=== PATIENT | female | born 1950 | race Caucasian/White ===

== ENCOUNTER → 2024-08-17 | Outpatient (CLI) | payer OTHER, SELFPAY ==
[2024-08-17 10:13] LABS: Basophils # (Auto) 0.1 Thou/mm3 (0.0-0.2); Basophils % (Auto) 1 % (0-2.5); Eosinophils # (Auto) 0.3 Thou/mm3 (0.0-0.5); Eosinophils % (Auto) 3 % (0-10); Hemoglobin 13.1 g/dL (12.0-16.0); Immature Granulocytes % (Auto) 0 % (0-0); Immature Granulocytes Auto 0.03 Thou/mm3 (0.00-0.00); Lymphocytes # (Auto) 1.3 Thou/mm3 (1.0-4.8); Lymphocytes % (Auto) 17 % (10-50); Mean Corpuscular HGB Conc 32.8 g/dl (31.0-37.0); Mean Corpuscular Hemoglobin 28.3 pg (25.0-35.0); Mean Corpuscular Volume 86 fL (80-100); Monocytes # (Auto) 0.4 Thou/mm3 (0.0-0.8); Monocytes % (Auto) 6 % (0-12); Neutrophils # (Auto) 5.6 Thou/mm3 (1.8-7.7); Neutrophils % (Auto) 73 % (37-80); Nucleated Red Blood Cell % 0 /100 WBC (0); Platelet Count 281 Thou/mm3 (140-440); RDW Standard Deviation 45.7 fL (36.4-46.3); Red Blood Count 4.63 Miln/mm3 (4.00-5.20); White Blood Count 7.6 Thou/mm3 (3.6-11.0)
[2024-08-17 10:22] LABS: Alanine Aminotransferase 11 U/L (10-49); Albumin, Serum 4.1 gm/dL (3.4-4.8); Albumin/Globulin Ratio 1.5 (1.2-2.2); Alkaline Phosphatase 46 U/L (46-116); Anion Gap 4 (7-16); Aspartate Amino Transferase 11 U/L (0-34); BUN/Creatinine Ratio 23 Ratio (12-20); Bilirubin,Total 0.5 mg/dL (0.3-1.2); Blood Urea Nitrogen 43 mg/dL (9-23); Calcium 9.2 mg/dL (8.3-10.6); Calcium (Corrected) 9.2 mg/dL (8.5-10.1); Carbon Dioxide 25.6 mMol/L (20.0-31.0); Cardiac Risk Estimate 3.6 RATIO (3.7-5.6); Chloride 108 mMol/L (98-107); Cholesterol 132 mg/dL (132-200); Creatinine (Component) 1.9 mg/dL (0.6-1.3); Globulin 2.7 gm/dL (2.3-3.5); Glucose 152 mg/dL (74-106); Glucose Estimated Average 177 mg/dL (80-131); HDL Cholesterol 37 mg/dL (40-60); Hemoglobin A1C 7.8 % Hgb (4.8-6.0); LDL Cholesterol,Calculated 69 mg/dL (0-130); Osmolality,Calculated 289 (275-295); Potassium 4.8 mMol/L (3.4-5.1); Sodium 138 mMol/L (136-145); Total Protein 6.8 gm/dL (5.7-8.2); Triglycerides 128 mg/dL (30-150); eGFR 28 See Note
[2024-08-17 10:24] LABS: Vitamin B12 763 pg/mL (211-911); Vitamin D 25 Hydroxy Total 51.1 ng/mL (7.3-40.2)
[2024-08-17 11:12] LABS: Creatinine MALB Rnd Ur 65 mg/dL (30-125); Microalbumin Creat Ratio 162 mg/gCrea (<30); Microalbumin, Random Urine 105 mg/L (0-300)
== END | disposition home or self-care (01) ==
LOC: CDIM 09:02 → COPL 09:10
PROVIDERS: PCP Nurse Practitioner Family; Referring Provider Nurse Practitioner Family; Visit Provider Nurse Practitioner Family
DX: E11.65 Type 2 diabetes mellitus with hyperglycemia (principal); E53.8 Deficiency of other specified B group vitamins; E55.9 Vitamin D deficiency, unspecified
CPT/HCPCS: 36415; 80053; 80061; 82043; 82306; 82570; 82607; 83036; 85025

== ENCOUNTER 2024-08-27 22:48 | Inpatient (IN) | payer OTHER, MEDICARE, SELFPAY ==
[2024-08-27 22:50] VITALS: PULSE 104; RESP 18; O2SAT 99
[2024-08-27 22:55] VITALS: BP 131/76; PULSE 90; RESP 19; TEMP 36.9; O2SAT 97; BMI 38.9
--- NOTE | 2024-08-27 23:08 | XR_ITS ---
Examination: CT abdomen and pelvis without contrast. Coronal 3-D reconstructions. Sagittal 2-D reconstructions. Date and time of exam:August 27, 2024 11:28 PM Indications: Onset left flank pain today history kidney stones CTDI: vol (mGy): 14.6 DLP: (mGycm): 880 Technique: Axial images of the abdomen have been obtained, 3 mm slice thickness Intravenous contrast material has not been administered. Low dose protocols were performed. One or more of the following dose reduction techniques were used; automated exposure control, adjustment of the mA and/or KV according to patient size, use of iterative reconstruction technique. Findings: No focal liver or splenic lesions No gallstones No splenic or pancreatic mass 3 cm upper pole right renal cyst Parapelvic and lower pole left renal cysts, the largest 35 mm Mild left hydronephrosis, no ureteral calculi No bowel obstruction Normal appendix No diverticulitis Moderate osteopenia Anteverted uterus Markedly thickened urinary bladder wall with inflammatory change Impression: Mild left hydronephrosis, markedly thickened urinary bladder wall with inflammatory change The appearance is most consistent with left pyelonephritis and cystitis No renal or ureteral calculi
--- NOTE | 2024-08-27 23:12 | PD.EDRME ---
Rapid Medical Screening Exam RME Arrival date/time: 08/27/24 22:48 Chief Complaint: Back Pain/Injury Time Seen by Provider: 08/27/24 22:57 Vital signs: Vital Signs Temperature 98.4 F 08/27/24 22:55 Pulse Rate 90 08/27/24 22:55 Respiratory Rate 19 08/27/24 22:55 Blood Pressure 131/76 H 08/27/24 22:55 Pulse Oximetry (%) 97 08/27/24 22:55 Oxygen Delivery Method Room Air 08/27/24 22:55 Vital signs reviewed by provider: Yes RME Narrative: 74-year-old female presents for evaluation of left-sided flank pain. She reports a history of obstructive kidney stones x 12 years ago requiring lithotripsy. She endorses dysuria x 1 week. Denies chest pain, fever, shortness of breath, abdominal pain, diarrhea.
[2024-08-27] MEDS: MORPHINE SULF INJ 10 MG/ML VIAL 4 MG IVP (23:37)
[2024-08-27] MEDS: ONDANSETRON INJ 2 MG/ML INJ 2 ML 4 MG IV (23:49)
[2024-08-27 23:59] LABS: Basophils # (Auto) 0.1 Thou/mm3 (0.0-0.2); Basophils % (Auto) 0 % (0-2.5); Eosinophils # (Auto) 0.1 Thou/mm3 (0.0-0.5); Eosinophils % (Auto) 1 % (0-10); Hematocrit 39.8 % (36.0-46.0); Hemoglobin 13.5 g/dL (12.0-16.0); Immature Granulocytes % (Auto) 0 % (0-0); Immature Granulocytes Auto 0.04 Thou/mm3 (0.00-0.00); Lymphocytes # (Auto) 0.7 Thou/mm3 (1.0-4.8); Lymphocytes % (Auto) 6 % (10-50); Mean Corpuscular HGB Conc 33.9 g/dl (31.0-37.0); Mean Corpuscular Hemoglobin 28.7 pg (25.0-35.0); Mean Corpuscular Volume 85 fL (80-100); Monocytes # (Auto) 0.7 Thou/mm3 (0.0-0.8); Monocytes % (Auto) 6 % (0-12); Neutrophils # (Auto) 10.6 Thou/mm3 (1.8-7.7); Neutrophils % (Auto) 88 % (37-80); Nucleated Red Blood Cell % 0 /100 WBC (0); Platelet Count 192 Thou/mm3 (140-440); RDW Standard Deviation 44.6 fL (36.4-46.3); White Blood Count 12.2 Thou/mm3 (3.6-11.0)
[2024-08-28] VITALS (13 sets, daily range): BP systolic 90–140; BP diastolic 60–86; PULSE 82–109; RESP 16–19; TEMP 36.2–38.3; O2SAT 94–99; BMI 38.9
[2024-08-28 00:46] LABS: Alanine Aminotransferase 12 U/L (10-49); Albumin, Serum 4.4 gm/dL (3.4-4.8); Albumin/Globulin Ratio 1.4 (1.2-2.2); Alkaline Phosphatase 47 U/L (46-116); Anion Gap 8 (7-16); Aspartate Amino Transferase 16 U/L (0-34); BUN/Creatinine Ratio 18 Ratio (12-20); Bilirubin,Total 0.7 mg/dL (0.3-1.2); Blood Urea Nitrogen 36 mg/dL (9-23); Calcium 9.5 mg/dL (8.3-10.6); Calcium (Corrected) 9.5 mg/dL (8.5-10.1); Carbon Dioxide 23.8 mMol/L (20.0-31.0); Chloride 102 mMol/L (98-107); Estimated Creatinine Clearance 28.2 mL/min (>60); Globulin 3.1 gm/dL (2.3-3.5); Glucose 241 mg/dL (74-106); Osmolality,Calculated 284 (275-295); Potassium 4.4 mMol/L (3.4-5.1); Sodium 134 mMol/L (136-145); Total Protein 7.5 gm/dL (5.7-8.2); eGFR 26 See Note
[2024-08-28 01:24] LABS: Collection Type, Urine Clean Catch; Squamous Epithelial Cell,Urine 0 /hpf (0-5)
[2024-08-28 01:28] LABS: Bacteria,Urine 2+; Bilirubin,Urine Negative (Negative); Blood,Urine 3+ (Negative); Budding Yeast,Urine Present; Clarity,Urine Turbid (Clear/Hazy); Color,Urine Yellow (Lt Yel-Yel); Glucose, Urine 4+ (Negative); Ketones,Urine Negative (Negative); Leukocyte Esterase,Urine Positive (Negative); Nitrite,Urine Negative (Negative); Protein,Urine 2+ (Neg - Trace); RBC,Urine 92 /hpf (0-3); Specific Gravity,Urine 1.019 (1.001-1.035); Urobilinogen,Urine Negative mg/dL (0.0-1.0); WBC,Urine 5507 /hpf (0-5)
[2024-08-28] MEDS: cefTRIAXone 1,000 MG in SODIUM CHLORIDE 0.9% (P) 50 ML 100 MG IV (01:35)
--- NOTE | 2024-08-28 01:52 | EDNOTE_ITS ---
ED Back Injury Pain RME/HPI General Chief Complaint: Back Pain/Injury Stated Complaint: back pain Time Seen by Provider: 08/27/24 22:57 Source: patient Arrival date/time: 08/27/24 22:48 74-year-old female with past medical history of kidney stones, diabetes on Jardiance, and hypertension presents emergency department complaining of left- sided flank pain and dysuria for 1 week. Patient denies any chills, fever, nausea vomiting, gross hematuria, diarrhea, or any other associated symptoms. Mode of arrival: ambulatory Limitations: no limitations RME / HPI RME / HPI Narrative: 74-year-old female presents for evaluation of left-sided flank pain. She reports a history of obstructive kidney stones x 12 years ago requiring lithotripsy. She endorses dysuria x 1 week. Denies chest pain, fever, shortness of breath, abdominal pain, diarrhea. Related Data Home Medications ?Medication ?Instructions ?Recorded ?Confirmed lisinopril 20 mg tablet 20 mg PO QDAY #0 tabs 09/02/15 metformin 1,000 mg tablet 1,000 mg PO BID #0 tabs 09/02/15 (Glucophage) pravastatin 40 mg tablet 40 mg PO HS #0 tabs 09/02/15 (Pravachol) sitagliptin phosphate 100 mg 100 mg PO QDAY #0 tabs 09/02/15 tablet (Januvia) Vitamin * 1 tab PO QDAY #0 tabs 09/18/15 Allergies Allergy/AdvReac Type Severity Reaction Status Date / Time codeine AdvReac Intermediate STOMACH Verified 09/19/15 15:43 UPSET hydrocodone AdvReac Mild STOMACH Verified 09/19/15 15:43 UPSET Review of Systems Review of Systems Systems Reviewed: All systems reviewed, normal except as documented Constitutional Constitutional: Reports system reviewed and no additional complaints, except as documented, Denies body ache(s), Denies chills and Denies fever(s) Eyes Eyes: Reports system reviewed and no additional complaints, except as documented and Denies change in vision ENT Ears, Nose, Mouth, and Throat: Reports system reviewed and no additional complaints, except as documented, Denies disequilibrium, Denies dizziness, Denies sore throat and Denies vertigo Cardiovascular Cardiovascular: Reports system reviewed and no additional complaints, except as documented, Denies chest pain and Denies dyspnea Respiratory Respiratory: Reports system reviewed and no additional complaints, except as documented, Denies chest congestion, Denies cough and Denies dyspnea Gastrointestinal Gastrointestinal: Reports system reviewed and no additional complaints, except as documented, Denies abdominal pain, Denies nausea and Denies vomiting Genitourinary Genitourinary: Reports dysuria and Reports urinary urgency Musculoskeletal Musculoskeletal: Reports system reviewed and no additional complaints, except as documented, Denies abnormal gait, Denies arthralgias and Reports back pain Integumentary/Breasts Skin/Breast: Reports system reviewed and no additional complaints, except as documented, Denies erythema, Denies rash and Denies wounds Neurologic Neurologic: Reports system reviewed and no additional complaints, except as documented, Denies abnormal gait, Denies disequilibrium, Denies dizziness and Denies vertigo Past Medical History Social History SMOKING STATUS: Never smoker ED Exam General Limitations: Present no limitations General appearance: Present alert and in no apparent distress Head Head exam: Present atraumatic Eye Eye exam: Present normal appearance, PERRL and EOMI ENT ENT exam: Present normal exam, normal oropharynx and mucous membranes moist Neck Neck exam: Present normal inspection, full ROM and trachea midline Chest Chest inspection: Present normal inspection and symmetric chest wall rise Respiratory Respiratory exam: Present normal lung sounds bilaterally Cardiovascular Cardiovascular exam: Present regular rate, normal rhythm and normal heart sounds Abdominal Exam Abdominal exam: Present soft and normal bowel sounds Extremities Exam Extremities exam: Present normal inspection and full ROM Back Exam Back exam: Present normal inspection, full ROM and CVA tenderness (L) Neurological Exam Neurological exam: Present alert, oriented X3 and CN II-XII intact Psychiatric Psychiatric exam: Present normal affect and normal mood Skin Skin exam: Present warm, dry, intact and normal color Course Quality Measures none Orders Category Date Time Status COVID-19 Screening Questionnaire NOW Care 08/28/24 01:49 Active Decision to Admit X1 Care 08/28/24 01:[address] abdomen pelvis wo con Stat Exams 08/27/24 23:08 Completed CBC Stat Lab 08/27/24 23:54 Completed CMP [Comprehensive Metabolic Panel] Stat Lab 08/27/24 23:54 Completed UA [Urinalysis] Stat Lab 08/27/24 01:55 Completed Urine Culture Stat Lab 08/28/24 00:51 Ordered Morphine Inj Med 08/27/24 23:10 Discontinued 4 mg IVP X1 ONE Ondansetron Inj [Zofran Inj] Med 08/27/24 23:10 Discontinued 4 mg IV X1 ONE cefTRIAXone [Rocephin] 1,000 mg Med 08/28/24 01:05 Discontinued Sodium Chloride 0.9% (P) [Ns 0.9% (P)] 50 ml IV X1 Vital Signs Vital signs: Vital Signs Temperature 98.4 F 08/27/24 22:55 Pulse Rate 90 08/27/24 22:55 Respiratory Rate 19 08/27/24 22:55 Blood Pressure 131/76 H 08/27/24 22:55 Pulse Oximetry (%) 97 08/27/24 22:55 Oxygen Delivery Method Room Air 08/27/24 22:55 97% room air within normal limits. Back Pain / Injury MDM Narrative MDM Narrative:: 74-year-old female with past medical history of kidney stones, diabetes on Jardiance, and hypertension presents emergency department complaining of left- sided flank pain and dysuria for 1 week. Patient denies any chills, fever, nausea vomiting, gross hematuria, diarrhea, or any other associated symptoms. Patient CBC mild leukocytosis 12.2. CMP remarkable for elevated creatinine 2.0 that was normal back in April. Urinalysis significant for RBCs, WBCs, and bacteria. CT impression: Impression: Mild left hydronephrosis, markedly thickened urinary bladder wall with inflammatory change The appearance is most consistent with left pyelonephritis and cystitis No renal or ureteral calculi Dr Ibarra call and discussed case and agrees to admit for IV antibiotics and IV fluid for acute kidney injury and pyelonephritis. Patient is stable condition at time of admission. Patient data External records reviewed:: [facility] previous records Clinical information provided by:: patient and family Social determinants that could affect healthcare access:: none Patient has the following chronic illnesses:: See chart How is presenting disease/condition affected by chronic disease/condition?: exacerbated by Evaluation data The following diagnostics were reviewed and interpreted by me:: lab results and radiology exam(s) Lab and/or radiology exams considered but not ordered:: Ordered Interpretation Summary: Interpreted by me Medications / Prescriptions Medications or Prescriptions considered but not ordered:: Ordered Medication administrations:: Medication Administration History Discontinued Medications Ceftriaxone Sodium 1,000 mg/ (Sodium Chloride) 50 mls @ 100 mls/hr IV X1 ONE Stop: 08/28/24 01:34 Last Admin: 08/28/24 01:35 Dose: 100 mls/hr Documented By: CVL Morphine Sulfate (Morphine Sulf Inj 10 Mg/Ml Vial) 4 mg IVP X1 ONE Stop: 08/27/24 23:11 Last Admin: 08/27/24 23:37 Dose: 4 mg Documented By: MP Ondansetron HCl (Ondansetron Inj 2 Mg/Ml Inj 2 Ml) 4 mg IV X1 ONE; Protocol Stop: 08/27/24 23:11 Last Admin: 08/27/24 23:49 Dose: 4 mg Documented By: DB Given Consultations Consultation(s) initiated? (list below): Yes Consultation #1 (Physician, Specialty, Details): Dr. Ibarra Diagnosis Differential diagnosis back pain/injury: renal colic, pyelonephritis, thoracic back pain and AAA Most likely diagnosis given after review of the tests above:: Pyelonephritis Acute kidney injury Admission Indicated Admission indicated?: indicated Admission Request Was there a request for admission?: Yes Admission Attestation Admission request attestation: Discussed case with [Dr. Ibarra] regarding admission. Discussed patients ED course, exam findings, labs, and radiology results. Dr Ibarra [agrees] to accept the patient for admission. Disposition Plan Disposition Plan: Admit Discharge Plan Plan Patient Disposition: Admit Acute Care w/in Hospital Disposition Comment: Stable Prescriptions/Referrals Prescriptions/Med Rec: No Action lisinopril 20 MG tablet 20 mg PO QDAY Qty: 0 metformin [Glucophage] 1,000 MG tablet 1,000 mg PO BID Qty: 0 pravastatin [Pravachol] 40 MG tablet 40 mg PO HS Qty: 0 sitagliptin phosphate [Januvia] 100 MG tablet 100 mg PO QDAY Qty: 0 Vitamin * 1 EACH tablet 1 tab PO QDAY Qty: 0 Referrals: Ry Ibarra MD [Primary Care Provider] - In 1 week Problem List Clinical Impression: Acute kidney injury, Acute pyelonephritis Patient/Caregiver Discharge Instructions Print Language: Arabic Stand Alone Forms: Velvet Award Info., Patient Portal Info Letter PA/TELEPHONE CLAIMS REPRESENTATIVE Supervising Physician PA/TELEPHONE CLAIMS REPRESENTATIVE Supervising Physician: Dr. Parker
[2024-08-28] MEDS: SODIUM CHLORIDE 0.9% 1000 ML 1,000 ML 80 ML IV ×2 (03:18→21:00)
--- NOTE | 2024-08-28 07:43 | PC.NURSE ---
pt resting in bed in no apparent distress. pt states that she is not having any burning pain with urination any longer but reports slight headache. offered pt pain medications. pt refused morphine at this time. temp checked 100.6. no orders for Tylenol noted. will contact Dr. Iabrra for further orders
[2024-08-28] MEDS: ACETAMINOPHEN 500 MG TABLET PO (08:48)
[2024-08-28] MEDS: INSULIN HUM REGULAR 1 UNIT/0.01 ML (PER UNIT) SC ×4 (08:48→21:04)
[2024-08-28 11:54] LABS: Lactate (Lactic Acid) 1.3 mMol/L (0.4-2.0)
[2024-08-28] MEDS: IBUPROFEN TAB 600 MG TABLET PO (11:55)
[2024-08-28] MEDS: SODIUM CHLORIDE 0.9% 1000 ML 1,000 ML 999 ML IV (11:55)
--- NOTE | 2024-08-28 12:32 | ESHP_ITS ---
Documentation for date of: 08/28/24 [facility] History of Present Illness Chief complaint: Flank pain and dysuria History of present illness: 74 y/o F with PMHx significant for HTN, DM, osteoarthritis, gout presents with chief complaint of dysuria x 3 weeks and left flank pain x 1 day. Patient was in her usual state of health until approximately 3 weeks ago when she began developing burning pain on urination. Patient was taking Jardiance at the time, was discontinued by Dr. Yoon. Patient continued to have dysuria, yesterday she developed sharp left flank pain that she initially attributed to a kidney stone prompting ER visit. Patient had 1 episode of vomiting shortly after receiving morphine in the ED. Patient denies fevers, chills, chest pain, shortness of breath, bloody urine. ED COURSE: Labs significant for: Sodium 134, potassium 4.4, bicarb 23.8, BUN 36, creatinine 2.0, eGFR 26, WBC 12.2, hemoglobin 13.5. Urinalysis showed 3+ blood, 1+ protein, 3000 WBCs, 106 RBCs, 3+ bacteria, yeast positive. Imaging significant for: CT A/P showing left hydronephrosis and pyelonephritic pattern. Patient received 1 g Rocephin in the ED. Patient meets 2/4 SIRS criteria: Fever 101.0, leukocytosis 12.2. PMH: HTN, DM, osteoarthritis, gout PSH: Surgery, hernia surgery, Allergies:?Codeine?nausea/vomiting, lethargy Medications: Allopurinol, atorvastatin, other unknown meds Review of Systems Review of Systems Systems Reviewed: All systems reviewed, normal except as documented Past Medical History Past Medical History NEUROLOGIC: Negative Neurological Disorders CARDIAC: Positive Cardiac Disorders and Hypertension; Negative Myocardial Infarction, Cardiac Arrhythmia, Atrial Fibrillation, Angina, Heart Murmur, Coronary Artery Disease, Atherosclerotic Heart Disease, Peripheral Vascular Disease, Hypercholesterolemia, Aneurysm, Congestive Heart Failure, Valvular Heart Disease, Rheumatic Fever, Cardiomyopathy, Edema, Pericarditis, Cellulitis, Deep Vein Thrombosis, Hypotension or Varicose Veins RESPIRATORY: Negative Respiratory Disorders or Chronic Obstructive Pulmonary Disease (COPD) GASTROINTESTINAL: Negative Gastrointestinal Disorders or Colorectal Cancer GENITOURINARY: Positive Genitourinary Disorders and Kidney Stones; Negative Chronic Kidney Disease, Renal Disease, Polycystic Kidney Disease, Neurogenic Bladder, Inguinal Hernia, Dialysis, Prostate Cancer or Benign Prostatic Hyperplasia REPRODUCTIVE: Negative Breast Cancer, Pelvic Inflammatory Disease or Testicular Cancer MUSCULOSKELETAL: Positive Musculoskeletal Disorders and Rheumatoid Arthritis; Negative Muscular Dystrophy, Myasthenia Gravis, Marfan's Syndrome, Bone Cancer, Arthritis, Osteoporosis, Degenerative Disk Disease, Gout, Scoliosis, Fibromyalgia, Fractures, Degenerative Joint Disease, Osteomyelitis or Poliovirus ENT: Negative History of ENT Problems ENDOCRINE: Positive Endocrine Disorders and Diabetes Mellitus Type 2; Negative Diabetes Mellitus Type 1, Hypoglycemia, Jasmin's Syndrome, [place]'s Disease, Hyperthyroidism, Hypothyroidism, Parathyroid Disease, Pituitary Disease, Systemic Lupus Erythematosus, Syndrome of Inappropriate Antidiuretic Hormone (SIADH), Adrenal Disease or Graves' Disease HEMATOLOGIC: Negative Blood Disorders OTHER HISTORY: Negative Hospitalization, Autoimmune Disease, Down Syndrome, Developmental Delay, Shingles, Falls, Blood Transfusions, Blood Transfusion Reaction, Anesthesia Reactions, Organ Transplant, Chemotherapy, Radiation Therapy, Hyperbaric Therapy, MRSA, VRSA, Vancomycin-Resistant Enterococci, Cancer, Breast Cancer, Cervical Cancer, Colorectal Cancer, Lung Cancer, Ovarian Cancer, Prostate Cancer or Testicular Cancer Family History FAMILY HISTORY: Negative Family Psychiatric Problems, Family Respiratory Disorders, Family Cardiac Disorders, Family Gastrointestinal Problems, Family Genitourinary Problems, Family Endocrine Disorders, Family Reproductive Disorders, Family Musculoskeletal Disorders, Family Cancer, Family Surgery or Family Anesthesia Reaction Surgical History SURGICAL: Positive Knee Sx (right knee) and Section (x1); Negative Pacemaker, Neurologic Surgery, Brain Shunt or Organ Transplant Social History SMOKING STATUS: Never smoker SECOND HAND EXPOSURE: No Past Medical History Comments PMH COMMENT: PMH: HTN, DM, osteoarthritis, gout PSH: Surgery, hernia surgery, Allergies:?Codeine?nausea/vomiting, lethargy Medications: Allopurinol, atorvastatin, other unknown meds Exam Vital Signs Temp Pulse Resp BP Pulse Ox O2 Del Method 101.0 F H 100 19 134/85 H 96 Room Air 08/28/24 11:55 08/28/24 11:17 08/28/24 11:17 08/28/24 11:17 08/28/24 11:17 08/28/24 11:17 Narrative Exam PE: Gen: Well-developed and well-nourished. Obese. HEENT: NCAT, PERRLA, EOMI, MMM, anicteric conjunctivae. CVS: normal S1 and S2. RRR. No M/R/G. Resp: CTA B/L. No rhonchi, rales, crackles or wheezing. Abd: soft, non-tender, non-distended. MSK: Good ROM in BUE & BLE. No edema or rash. No CVA tenderness. Neuro: CN II-XII grossly intact. Strength 5/5 in BUE & BLE. Alert and oriented x3. Psych: appropriate mood and affect. Results: Labs 08/27/24 23:54 08/27/24 23:54 Labs: Short CBC 08/27/24 Range/Units 23:54 WBC 12.2 H (3.6-11.0) Thou/mm3 Hgb 13.5 (12.0-16.0) g/dL Hct 39.8 (36.0-46.0) % Plt Count 192 D (140-440) Thou/mm3 BMP 08/27/24 23:54 Sodium 134 L Potassium 4.4 Chloride 102 Carbon Dioxide 23.8 BUN 36 H Creatinine 2.0 H Glucose 241 H Calcium 9.5 Liver Function 08/27/24 Range/Units 23:54 Total Bilirubin 0.7 (0.3-1.2) mg/dL AST 16 (0-34) U/L ALT 12 (10-49) U/L Alkaline Phosphatase 47 (46-116) U/L Albumin 4.4 (3.4-4.8) gm/dL Urine 08/27/24 Range/Units 01:55 Urine Color Yellow (Lt Yel-Yel) Urine Clarity Turbid A (Clear/Hazy) Urine pH 6.0 (5.0-7.0) Ur Specific Conrad 1.019 (1.001-1.035) Urine Protein 2+ A (Neg - Trace) Urine Glucose (UA) 4+ A (Negative) Quality Measures Quality Measures VTE prophylaxis Advance care planning discussed with:: patient Medications Home Medications and Allergies Home Medications ?Medication ?Instructions ?Recorded ?Confirmed ?Type lisinopril 20 mg tablet 40 mg PO QDAY #0 tabs 09/02/15 08/28/24 History allopurinol 100 mg tablet 100 mg PO QDAY 08/28/24 08/28/24 History insulin degludec 200 unit/mL (3 40 unit subcut ONCE PM 08/28/24 08/28/24 History mL) subcutaneous pen (Tresiba FlexTouch U-200 insulin) tirzepatide 2.5 mg/0.5 mL 2.5 mg subcut QWEEK 08/28/24 08/28/24 History subcutaneous pen injector (Sharla) Allergies Allergy/AdvReac Type Severity Reaction Status Date / Time codeine AdvReac Intermediate STOMACH Verified 09/19/15 15:43 UPSET hydrocodone AdvReac Mild STOMACH Verified 09/19/15 15:43 UPSET Visit Medications Acetaminophen (Acetaminophen 500 Mg Tablet) 500 mg PO Q6HR PRN PRN Reason: Fever > 100.4 Stop: 09/27/24 08:31 Last Admin: 08/28/24 08:48 Dose: 500 mg Dextrose (Dextrose 50%-Water Inj 50 Ml Syringe) 25 ml IV Q15MIN PRN PRN Reason: BG 50-70 responsive npo pt Stop: 09/27/24 08:32 Dextrose (Dextrose 50%-Water Inj 50 Ml Syringe) 50 ml IV Q15MIN PRN PRN Reason: BG <50 OR BG <70 & pt unresponsive Stop: 09/27/24 08:32 Glucagon (Glucagon Inj 1 Mg Vial) 1 mg IM Q15MIN PRN PRN Reason: BG <70, and no IV access Sodium Chloride (Ns) 1,000 mls @ 80 mls/hr IV .[id number] ONE Stop: 08/28/24 14:29 Last Admin: 08/28/24 03:18 Dose: 80 mls/hr Ceftriaxone Sodium/Dextrose (Rocephin/D5w 1gm Iv Premix) 50 mls @ 100 mls/hr IV 2100 ILANA Stop: 09/04/24 20:59 Insulin Human Regular (Insulin Hum Regular 1 Unit/0.01 Ml (Per Unit)) 0 unit SC ACHS [facility]; Protocol Stop: 09/27/24 11:29 Last Admin: 08/28/24 11:57 Dose: 2 unit Morphine Sulfate (Morphine Sulf Inj 10 Mg/Ml Vial) 2 mg IVP Q4HR PRN PRN Reason: PAIN SCALE 4-10(Mod-Sev Ondansetron HCl (Ondansetron Inj 2 Mg/Ml Inj 2 Ml) 4 mg IV Q6HR PRN; Protocol PRN Reason: NAUSEA OR VOMITING Stop: 09/27/24 02:02 Discontinued Medications Ceftriaxone Sodium 1,000 mg/ (Sodium Chloride) 50 mls @ 100 mls/hr IV X1 ONE Stop: 08/28/24 01:34 Last Infusion: 08/28/24 02:08 Dose: Infused Sodium Chloride (Ns) 1,000 mls @ 999 mls/hr IV .Q1H1M ONE Stop: 08/28/24 12:31 Last Admin: 08/28/24 11:55 Dose: 999 mls/hr Ibuprofen (Ibuprofen Tab 600 Mg Tablet) 600 mg PO X1 ONE Stop: 08/28/24 11:32 Last Admin: 08/28/24 11:55 Dose: 600 mg Insulin Human Regular (Insulin Hum Regular 1 Unit/0.01 Ml (Per Unit)) 0 unit SC ACHS ILANA; Protocol Stop: 09/27/24 11:29 Morphine Sulfate (Morphine Sulf Inj 10 Mg/Ml Vial) 4 mg IVP X1 ONE Stop: 08/27/24 23:11 Last Admin: 08/27/24 23:37 Dose: 4 mg Ondansetron HCl (Ondansetron Inj 2 Mg/Ml Inj 2 Ml) 4 mg IV X1 ONE; Protocol Stop: 08/27/24 23:11 Last Admin: 08/27/24 23:49 Dose: 4 mg Assessment & Plan Plan 74 y/o F with PMHx significant for HTN, DM, osteoarthritis, gout presents with chief complaint of dysuria x 3 weeks and left flank pain x 1 day, admitted for pyelonephritis. #Sepsis secondary to #UTI #Pyelonephritis Patient presents with 3 weeks dysuria and 1 day left flank pain. CT A/P showed left hydronephrosis and pyelonephritis pattern. UA showed 3+ blood, 1+ protein, 3000 WBCs, 100 RBCs, 3+ bacteria, yeast positive. Patient met 2/4 SIRS criteria: Fever 101.0, leukocytosis 12.2. Clear source of infection. Patient received 1 L normal saline bolus in the ED, 1 g Rocephin in the ED. -Rocephin 2 g IV daily -IVF: Normal saline at 80 mL/h -Tylenol 500 mg p.o. every 6 hours as needed for fever or pain -Zofran 4 mg IV every 6 hours as needed for nausea -Follow-up urine cultures #Diabetes, insulin-dependent Patient has history of diabetes. Hemoglobin A1c 7.8% as of 08/17/2024. -Carb consistent diet -Insulin sliding scale #HTN #Gout Patient history as above. Controlled with outpatient medications. -Resume home meds: Lisinopril 40 mg daily -Resume home meds: Allopurinol 100 mg daily DVT prophylaxis: SCDs GI prophylaxis: None Diet: Carb consistent low Lines: Peripheral IV Code status: Plan of care discussed with attending Dr. Ibarra. Jeremy Hammond MD PGY-1 Attending Provider Attestation/Addendum patient seen and examined with resident physician Dr. Hammond. Note reviewed, agree with findings and recommendations with changes made. Patient with a pyelonephritis. Pending blood cultures/urine cultures on ceftriaxone. Did have a fever-1 dose of ibuprofen given. Continue with Tylenol as needed. Labs ordered for tomorrow. Continue with IV fluids, antibiotics. Meds were reconciled.
[2024-08-28 12:33] LABS: Procalcitonin 0.29 ng/ml (0.0-0.49)
--- NOTE | 2024-08-28 14:29 | PC.CC ---
Pt Lacey Franklin is a 74 yr old female, admitted to hospitalist services for acute pylonephritis and JAMES. DRAWER IN [facility] [employer] [facility] met with pt at bedside to complete initial assessment. At time of encounter pt is noted to be alert and oriented to person, place and situation. Pt expresses understanding admission orders and reason for admission and plan of care. Pt able to confirm all demographic information. Pt is from home [address] [place] [address]. Pt pt she has a small apartment connected to her daughters home. Pt identifies her daughter Clarice Coley [phone] as her surrogate DM. Pt reports that she has a cane in the home that she seldom uses. Pt reports mostly being independent with ambulation. Pt reports being independent with her ADLS. Pt does not require supplemental O2. Pt reports that she is an insulin dependent diabetic. Pt is not on dialysis. Pt is followed by Dr. Ibarra for primary care. Pt is followed by Dr. Fidel garduno endocrinology. Pt reports being gainfully employed. At time of D/c pt reports she will return home, with family transporting her. Advance Directive not discussed at this time.
--- NOTE | 2024-08-28 14:48 | PC.NURSE ---
report given to Isabelle on med/surg floor. pt to go to room 362
[2024-08-28] MEDS: INSULIN GLARGINE (Lantus) 5 UNIT/0.05 ML (PER 5 UNITS) 10 UNIT SC (21:04)
[2024-08-28] MEDS: cefTRIAXone/D5w 1gm IV premix 50 ML IV (21:06)
[2024-08-29] VITALS (7 sets, daily range): BP systolic 95–121; BP diastolic 56–74; PULSE 78–99; RESP 18; TEMP 36.4–37.6; O2SAT 91–95
[2024-08-29 05:24] LABS: Basophils % (Auto) 0 % (0-2.5); Eosinophils % (Auto) 0 % (0-10); Hematocrit 33.2 % (36.0-46.0); Hemoglobin 11.3 g/dL (12.0-16.0); Immature Granulocytes % (Auto) 1 % (0-0); Immature Granulocytes Auto 0.06 Thou/mm3 (0.00-0.00); Lymphocytes # (Auto) 0.6 Thou/mm3 (1.0-4.8); Lymphocytes % (Auto) 6 % (10-50); Mean Corpuscular Volume 85 fL (80-100); Monocytes # (Auto) 0.7 Thou/mm3 (0.0-0.8); Monocytes % (Auto) 8 % (0-12); Neutrophils # (Auto) 8.2 Thou/mm3 (1.8-7.7); Neutrophils % (Auto) 85 % (37-80); Nucleated Red Blood Cell % 0 /100 WBC (0); Platelet Count 166 Thou/mm3 (140-440); RDW Standard Deviation 45.7 fL (36.4-46.3); Red Blood Count 3.89 Miln/mm3 (4.00-5.20); White Blood Count 9.7 Thou/mm3 (3.6-11.0)
[2024-08-29 06:06] LABS: Glucose Estimated Average 177 mg/dL (80-131); Hemoglobin A1C 7.8 % Hgb (4.8-6.0)
[2024-08-29 06:08] LABS: Parathyroid Hormone Intact 48.9 pg/ml (18.5-88.0)
[2024-08-29 06:50] LABS: Alanine Aminotransferase < 7 U/L (10-49); Albumin, Serum 3.6 gm/dL (3.4-4.8); Albumin/Globulin Ratio 1.4 (1.2-2.2); Alkaline Phosphatase 40 U/L (46-116); Anion Gap 9 (7-16); Aspartate Amino Transferase 11 U/L (0-34); BUN/Creatinine Ratio 18 Ratio (12-20); Bilirubin,Total 0.4 mg/dL (0.3-1.2); Blood Urea Nitrogen 29 mg/dL (9-23); Calcium 8.6 mg/dL (8.3-10.6); Calcium (Corrected) 8.9 mg/dL (8.5-10.1); Carbon Dioxide 20.5 mMol/L (20.0-31.0); Cardiac Risk Estimate 3.6 RATIO (3.7-5.6); Chloride 104 mMol/L (98-107); Cholesterol 121 mg/dL (132-200); Creatinine (Component) 1.6 mg/dL (0.6-1.3); Estimated Creatinine Clearance 35.3 mL/min (>60); Globulin 2.6 gm/dL (2.3-3.5); Glucose 193 mg/dL (74-106); HDL Cholesterol 34 mg/dL (40-60); LDL Cholesterol,Calculated 60 mg/dL (0-130); Osmolality,Calculated 277 (275-295); Potassium 4.4 mMol/L (3.4-5.1); Sodium 133 mMol/L (136-145); Thyroid Stimulating Hormone 0.42 uIU/mL (0.55-4.78); Total Protein 6.2 gm/dL (5.7-8.2); Triglycerides 135 mg/dL (30-150); Uric Acid 5.7 mg/dL (3.1-7.8); eGFR 34 See Note
[2024-08-29] MEDS: Lisinopril 20 MG TABLET 40 MG PO (08:45)
[2024-08-29] MEDS: allopurinoL 100 MG TABLET PO (08:45)
[2024-08-29] MEDS: INSULIN HUM REGULAR 1 UNIT/0.01 ML (PER UNIT) SC ×4 (08:45→20:10)
[2024-08-29] MEDS: INSULIN GLARGINE (Lantus) 5 UNIT/0.05 ML (PER 5 UNITS) 10 UNIT SC (08:47)
--- NOTE | 2024-08-29 13:37 | PD.RESPRO ---
Documentation for date of: 08/29/24 Subjective Subjective Interval history: 74 y/o F with PMHx significant for HTN, DM, osteoarthritis, gout presents with chief complaint of dysuria x 3 weeks and left flank pain x 1 day. Patient was in her usual state of health until approximately 3 weeks ago when she began developing burning pain on urination. Patient was taking Jardiance at the time, was discontinued by Dr. Yoon. Patient continued to have dysuria, yesterday she developed sharp left flank pain that she initially attributed to a kidney stone prompting ER visit. Patient had 1 episode of vomiting shortly after receiving morphine in the ED. Patient denies fevers, chills, chest pain, shortness of breath, bloody urine. ED COURSE: Labs significant for: Sodium 134, potassium 4.4, bicarb 23.8, BUN 36, creatinine 2.0, eGFR 26, WBC 12.2, hemoglobin 13.5. Urinalysis showed 3+ blood, 1+ protein, 3000 WBCs, 106 RBCs, 3+ bacteria, yeast positive. Imaging significant for: CT A/P showing left hydronephrosis and pyelonephritic pattern. Patient received 1 g Rocephin in the ED. Patient meets 2/4 SIRS criteria: Fever 101.0, leukocytosis 12.2. 08/29: Patient seen and examined on the floors. Patient resting comfortably in bed. Patient denies fever, chest pain, shortness of breath. Patient denies flank pain. Patient complains of mild dysuria, improved. BUN 24, creatinine 1.6, eGFR 34. Urine culture positive for pansensitive Klebsiella. Blood cultures pending. Exam Vital Signs Temp Pulse Resp BP Pulse Ox O2 Del Method 97.6 F 80 18 99/58 L 95 Room Air 08/29/24 11:56 08/29/24 11:56 08/29/24 11:56 08/29/24 11:56 08/29/24 11:56 08/29/24 11:56 Narrative Exam PE: Gen: Well-developed and well-nourished. Obese. HEENT: NCAT, PERRLA, EOMI, MMM, anicteric conjunctivae. CVS: normal S1 and S2. RRR. No M/R/G. Resp: CTA B/L. No rhonchi, rales, crackles or wheezing. Abd: soft, non-tender, non-distended. MSK: Good ROM in BUE & BLE. No edema or rash. No CVA tenderness. Neuro: CN II-XII grossly intact. Strength 5/5 in BUE & BLE. Alert and oriented x3. Psych: appropriate mood and affect. Objective Labs 08/29/24 04:05 08/29/24 04:05 Labs: Laboratory Results - last 24 hr 08/29/24 04:05 WBC 9.7 RBC 3.89 L Hgb 11.3 L D Hct 33.2 L MCV 85 MCH 29.0 MCHC 34.0 RDW Std Deviation 45.7 Plt Count 166 Neut % (Auto) 85 H Lymph % (Auto) 6 L Starr % (Auto) 8 Eos % (Auto) 0 Baso % (Auto) 0 Neut # (Auto) 8.2 H Lymph # (Auto) 0.6 L Starr # (Auto) 0.7 Eos # (Auto) 0.0 Baso # (Auto) 0.0 Immature Gran # (Auto) 0.06 H Absolute Nucleated RBC 0.00 Immature Gran % 1 H Nucleated RBC % 0 Sodium 133 L Potassium 4.4 Chloride 104 Carbon Dioxide 20.5 Anion Gap 9 BUN 29 H Creatinine 1.6 H Estim Creat Clear Calc 35.3 L eGFR 34 L BUN/Creatinine Ratio [address] Glu mg/dL 177 H Hemoglobin A1c 7.8 H Calculated Osmolality 277 Uric Acid 5.7 Calcium 8.6 Corrected Calcium 8.9 Total Bilirubin 0.4 AST 11 ALT < 7 L Alkaline Phosphatase 40 L Total Protein 6.2 Albumin 3.6 D Globulin 2.6 Albumin/Globulin Ratio 1.4 Triglycerides 135 Cholesterol 121 L LDL Cholesterol, Calc 60 HDL Cholesterol 34 L Cholesterol/HDL Ratio 3.6 L TSH 0.42 L PTH Intact 48.9 Quality Measures Quality Measures VTE prophylaxis Advance care planning discussed with:: patient Assessment & Plan Assessment Current Active Medications: Generic Name Dose Route Start Last Admin Trade Name Freq PRN Reason Stop Dose Admin Acetaminophen 500 mg 08/28/24 08:32 08/28/24 08:48 Acetaminophen 500 Mg Tablet PO 09/27/24 08:31 500 mg Q6HR PRN Administration Fever > 100.4 Allopurinol 100 mg 08/29/24 09:00 08/29/24 08:45 Allopurinol 100 Mg Tablet PO 09/28/24 08:59 100 mg QDAY ILANA Administration Dextrose 25 ml 08/28/24 08:33 Dextrose 50%-Water Inj 50 Ml Syringe IV 09/27/24 08:32 Q15MIN PRN BG 50-70 responsive npo pt Dextrose 50 ml 08/28/24 08:33 Dextrose 50%-Water Inj 50 Ml Syringe IV 09/27/24 08:32 Q15MIN PRN BG <50 OR BG <70 & pt unresponsive Glucagon 1 mg 08/28/24 08:33 Glucagon Inj 1 Mg Vial IM Q15MIN PRN BG <70, and no IV access Ceftriaxone Sodium/Dextrose 50 mls @ 100 mls/hr 08/28/24 21:00 08/28/24 21:06 Rocephin/D5w 1gm Iv Premix IV 09/04/24 20:59 100 mls/hr 2100 ILANA Administration Insulin Glargine 10 unit 08/28/24 21:00 08/29/24 08:47 Insulin Glargine (Lantus) 5 Unit/0.05 Ml (Per 5 Units) SC 09/27/24 20:59 10 unit QDAY ILANA Administration Insulin Human Regular 0 unit 08/28/24 08:45 08/29/24 12:02 Insulin Hum Regular 1 Unit/0.01 Ml (Per Unit) SC 09/27/24 11:29 1 unit ACHS ILANA Administration Protocol Lisinopril 40 mg 08/29/24 09:00 08/29/24 08:45 Lisinopril 20 Mg Tablet PO 09/28/24 08:59 40 mg QDAY ILANA Administration Morphine Sulfate 2 mg 08/28/24 02:02 Morphine Sulf Inj 10 Mg/Ml Vial IVP Q4HR PRN PAIN SCALE 4-10(Mod-Sev Ondansetron HCl 4 mg 08/28/24 02:03 Ondansetron Inj 2 Mg/Ml Inj 2 Ml IV 09/27/24 02:02 Q6HR PRN NAUSEA OR VOMITING Protocol Plan 74 y/o F with PMHx significant for HTN, DM, osteoarthritis, gout presents with chief complaint of dysuria x 3 weeks and left flank pain x 1 day, admitted for pyelonephritis. #Sepsis secondary to #UTI #Pyelonephritis Patient presents with 3 weeks dysuria and 1 day left flank pain. CT A/P showed left hydronephrosis and pyelonephritis pattern. UA showed 3+ blood, 1+ protein, 3000 WBCs, 100 RBCs, 3+ bacteria, yeast positive. Patient met 2/4 SIRS criteria: Fever 101.0, leukocytosis 12.2. Clear source of infection. Patient received 1 L normal saline bolus in the ED, 1 g Rocephin in the ED. Urine cultures positive for pansensitive Klebsiella. -Rocephin 2 g IV daily -Encourage oral hydration -Tylenol 500 mg p.o. every 6 hours as needed for fever or pain -Zofran 4 mg IV every 6 hours as needed for nausea -Follow-up blood cultures #Diabetes, insulin-dependent Patient has history of diabetes. Hemoglobin A1c 7.8% as of 08/17/2024. -Carb consistent diet -Insulin sliding scale #HTN #Gout Patient history as above. Controlled with outpatient medications. -Resume home meds: Lisinopril 40 mg daily -Resume home meds: Allopurinol 100 mg daily DVT prophylaxis: SCDs GI prophylaxis: None Diet: Carb consistent low Lines: Peripheral IV Code status: Full code Plan of care discussed with attending Dr. Ibarra. Jeremy Hammond MD PGY-1 Attending Provider Attestation/Addendum Patient seen and examined with resident physician Dr. Hammond. Note reviewed, agree with findings and recommendations. Urine cultures positive for Klebsiella. Pending blood cultures. Will plan for discharge tomorrow on Augmentin. Spoke to patient.
--- NOTE | 2024-08-29 14:34 | PC.SS ---
SS update: Blood cultures pending.
[2024-08-29] MEDS: cefTRIAXone/D5w 1gm IV premix 50 ML IV (20:04)
[2024-08-30] VITALS: BP 103/69; PULSE 74; RESP 18; TEMP 37.2; O2SAT 90
[2024-08-30 04:00] VITALS: BP 98/63; PULSE 74; RESP 18; TEMP 37.5; O2SAT 93
[2024-08-30 06:06] LABS: Basophils % (Auto) 1 % (0-2.5); Eosinophils # (Auto) 0.1 Thou/mm3 (0.0-0.5); Eosinophils % (Auto) 1 % (0-10); Hematocrit 34.7 % (36.0-46.0); Hemoglobin 11.5 g/dL (12.0-16.0); Immature Granulocytes % (Auto) 1 % (0-0); Immature Granulocytes Auto 0.04 Thou/mm3 (0.00-0.00); Lymphocytes # (Auto) 0.9 Thou/mm3 (1.0-4.8); Lymphocytes % (Auto) 12 % (10-50); Mean Corpuscular HGB Conc 33.1 g/dl (31.0-37.0); Mean Corpuscular Hemoglobin 28.9 pg (25.0-35.0); Mean Corpuscular Volume 87 fL (80-100); Monocytes # (Auto) 0.8 Thou/mm3 (0.0-0.8); Monocytes % (Auto) 10 % (0-12); Neutrophils % (Auto) 76 % (37-80); Nucleated Red Blood Cell % 0 /100 WBC (0); Platelet Count 188 Thou/mm3 (140-440); RDW Standard Deviation 46.4 fL (36.4-46.3); Red Blood Count 3.98 Miln/mm3 (4.00-5.20); White Blood Count 7.9 Thou/mm3 (3.6-11.0)
[2024-08-30 07:01] LABS: Alanine Aminotransferase 10 U/L (10-49); Albumin, Serum 3.7 gm/dL (3.4-4.8); Albumin/Globulin Ratio 1.3 (1.2-2.2); Alkaline Phosphatase 45 U/L (46-116); Anion Gap 7 (7-16); Aspartate Amino Transferase 15 U/L (0-34); BUN/Creatinine Ratio 19 Ratio (12-20); Bilirubin,Total 0.3 mg/dL (0.3-1.2); Blood Urea Nitrogen 30 mg/dL (9-23); Calcium 9.3 mg/dL (8.3-10.6); Calcium (Corrected) 9.5 mg/dL (8.5-10.1); Carbon Dioxide 23.6 mMol/L (20.0-31.0); Chloride 103 mMol/L (98-107); Creatinine (Component) 1.6 mg/dL (0.6-1.3); Estimated Creatinine Clearance 35.3 mL/min (>60); Globulin 2.9 gm/dL (2.3-3.5); Glucose 146 mg/dL (74-106); Osmolality,Calculated 277 (275-295); Potassium 4.4 mMol/L (3.4-5.1); Sodium 134 mMol/L (136-145); Total Protein 6.6 gm/dL (5.7-8.2); eGFR 34 See Note
[2024-08-30] MEDS: INSULIN HUM REGULAR 1 UNIT/0.01 ML (PER UNIT) SC (07:28)
[2024-08-30 08:00] VITALS: BP 98/68; PULSE 85; RESP 20; TEMP 36.3; O2SAT 97
[2024-08-30] MEDS: allopurinoL 100 MG TABLET PO (08:49)
[2024-08-30] MEDS: INSULIN GLARGINE (Lantus) 5 UNIT/0.05 ML (PER 5 UNITS) 10 UNIT SC (08:50)
--- NOTE | 2024-08-30 10:06 | ESDS_ITS ---
Planned Discharge Date 08/30/24 DS: Providers Provider Date of admission: 08/28/24 01:53 Primary care physician: Ry Ibarra MD Admitting Provider: Ry Ibarra MD Attending Provider on Admission: Ry Ibarra MD Attending Provider on DC: Ry Ibarra MD Discharging Provider: Jeremy Hammond MD DS: Diagnosis Problem List Completed Was Problem List Reviewed/Reconciled?: Yes Hospital Course Hospital Course Hospital course: 74 y/o F with PMHx significant for HTN, DM, osteoarthritis, gout presents with chief complaint of dysuria x 3 weeks and left flank pain x 1 day. Patient was in her usual state of health until approximately 3 weeks ago when she began developing burning pain on urination. Patient was taking Jardiance at the time, was discontinued by Dr. Yoon. Patient continued to have dysuria, yesterday she developed sharp left flank pain that she initially attributed to a kidney stone prompting ER visit. Patient had 1 episode of vomiting shortly after receiving morphine in the ED. Patient denies fevers, chills, chest pain, shortness of breath, bloody urine. ED COURSE: Labs significant for: Sodium 134, potassium 4.4, bicarb 23.8, BUN 36, creatinine 2.0, eGFR 26, WBC 12.2, hemoglobin 13.5. Urinalysis showed 3+ blood, 1+ protein, 3000 WBCs, 106 RBCs, 3+ bacteria, yeast positive. Imaging significant for: CT A/P showing left hydronephrosis and pyelonephritic pattern. Patient received 1 g Rocephin in the ED. Patient meets 2/4 SIRS criteria: Fever 101.0, leukocytosis 12.2. 08/29: Patient seen and examined on the floors. Patient resting comfortably in bed. Patient denies fever, chest pain, shortness of breath. Patient denies flank pain. Patient complains of mild dysuria, improved. BUN 24, creatinine 1.6, eGFR 34. Urine culture positive for pansensitive Klebsiella. Blood cultures pending. 08/30: Patient seen examined the floors, resting Bed. No Symptoms. Blood Cultures Negative. Patient Medically Stable and Cleared for Discharge. Discharge planning: -You have been started on Augmentin 1 tab twice a day for 10 days. -Keep taking all other medications as previously prescribed. -Follow-up with your primary doctor in 1-2 weeks Diagnoses: #Sepsis secondary to #UTI #Pyelonephritis #Diabetes, insulin-dependent #HTN #Gout Status at Discharge Cognitive/behavioral status at discharge: Stable Functional status at discharge: independent ambulation Overall status at discharge: patient is back to baseline Time Spent with Patient Time attestation: Total time spent providing and/or coordinating discharge services: 35 minutes Exam Vital Signs Temp Pulse Resp BP Pulse Ox O2 Del Method 97.4 F 85 20 98/68 97 Room Air 08/30/24 08:00 08/30/24 08:00 08/30/24 08:00 08/30/24 08:00 08/30/24 08:00 08/30/24 08:00 Narrative Exam PE: Gen: Well-developed and well-nourished. Obese. HEENT: NCAT, PERRLA, EOMI, MMM, anicteric conjunctivae. CVS: normal S1 and S2. RRR. No M/R/G. Resp: CTA B/L. No rhonchi, rales, crackles or wheezing. Abd: soft, non-tender, non-distended. MSK: Good ROM in BUE & BLE. No edema or rash. No CVA tenderness. Neuro: CN II-XII grossly intact. Strength 5/5 in BUE & BLE. Alert and oriented x3. Psych: appropriate mood and affect. Discharge Plan Plan Patient Disposition: HOME (Self Care) Disposition Comment: Stable Patient condition on transfer: Stable Prescriptions/Referrals Prescriptions/Med Rec: New amoxicillin-pot clavulanate [Augmentin] 500-125 mg tablet 1 tab PO BID Qty: 20 0RF Continued lisinopril 20 MG tablet 40 mg PO QDAY Qty: 0 allopurinol 100 mg tablet 100 mg PO QDAY insulin degludec [Tresiba FlexTouch U-200] 200 unit/mL (3 mL) insulin pen 40 unit SUBCUT ONCE PM Patient Comments: INJECT 40 UNITS SUBCUTANEOUSLY ONCE DAILY Mounjaro 2.5 mg/0.5 mL pen injector 2.5 mg SUBCUT QWEEK Patient Comments: INJECT 1 SYRINGE SUBCUTANEOUSLY ONCE A WEEK Rx Instructions: on fridays Referrals: Ry Ibarra MD [Primary Care Provider] - Patient/Caregiver Discharge Instructions Discharge Activity: activity as tolerated Education Materials: High Blood Sugar (Hyperglycemia), Acute Kidney Failure Dc Print Language: Frisian Activity Restrictions/Additional Instructions: Follow-up with Dr. Ibarra in 1 to 2 weeks Stand Alone Forms: [employer] Award Info., Patient Portal Info Letter Discharge Order Discharge Orders: Discharge (Routine); Ordered 08/30/24 Ordered By: Ry Ibarra Quality Discharge Quality Measures VTE prophylaxis MD Attestestation MD Attestation Patient seen and examined with resident physician Dr. Hammond. Note reviewed, agree with findings and recommendations. Patient will be discharged home on Augmentin for complicated UTI. Blood cu ltures negative. Urine cultures Klebsiella.
== END 2024-08-30 11:23 | disposition home or self-care (01) | DRG 872 ==
LOC: SERX 08-28 02:01 → SERHOLD 08-28 02:09 → S3NX 08-28 15:05
PROVIDERS: Physician Assistant; Admitting Provider Internal Medicine; Emergency Provider Emergency Medicine; PCP Internal Medicine; Visit Provider Internal Medicine
DX: A41.59 Other Gram-negative sepsis (principal); N13.6 Pyonephrosis; E11.9 Type 2 diabetes mellitus without complications; I10 Essential (primary) hypertension; M10.9 Gout, unspecified; E66.9 Obesity, unspecified; Z68.39 Body mass index [BMI] 39.0-39.9, adult; Z87.442 Personal history of urinary calculi; Z79.4 Long term (current) use of insulin; Z79.899 Other long term (current) drug therapy
CPT/HCPCS: 36415; 74176; 80053; 80061; 81001; 83036; 83605; 83970; 84145; 84443; 84550; 85025; 87040; 87077; 87086; 87186; 96365; 96372; 99285; J0696; J1815; J2270; J2405; J7030; J7050; A9270

== ENCOUNTER → 2024-08-27 | Outpatient (CLI) | payer OTHER, SELFPAY ==
[2024-08-27 14:11] LABS: Collection Type, Urine Clean Catch
[2024-08-27 14:20] LABS: Free T4 (Free Thyroxine) 1.22 ng/dL (0.89-1.76); Thyroid Stimulating Hormone 1.28 uIU/mL (0.55-4.78)
[2024-08-27 15:19] LABS: Bacteria,Urine 3+; Bilirubin,Urine Negative (Negative); Blood,Urine 3+ (Negative); Color,Urine Yellow (Lt Yel-Yel); Glucose, Urine 2+ (Negative); Ketones,Urine Negative (Negative); Leukocyte Esterase,Urine Positive (Negative); Nitrite,Urine Negative (Negative); PH,Urine 5.5 (5.0-7.0); Protein,Urine 1+ (Neg - Trace); RBC,Urine 106 /hpf (0-3); Squamous Epithelial Cell,Urine 2 /hpf (0-5); Urobilinogen,Urine Negative mg/dL (0.0-1.0); WBC,Urine 2939 /hpf (0-5)
[2024-08-27 15:21] LABS: Clarity,Urine Turbid (Clear/Hazy)
[2024-08-31 06:21] LABS: T3,Total* 94 ng/dL (76-181)
== END | disposition home or self-care (01) ==
LOC: COPL 13:24
PROVIDERS: PCP Internal Medicine; Referring Provider Nurse Practitioner Family; Visit Provider Nurse Practitioner Family
DX: R94.6 Abnormal results of thyroid function studies (principal); R30.0 Dysuria; E11.65 Type 2 diabetes mellitus with hyperglycemia
CPT/HCPCS: 36415; 81001; 84439; 84443; 84480; 87077; 87086; 87186

== ENCOUNTER → 2025-01-09 | Outpatient (CLI) | payer OTHER, SELFPAY ==
[2025-01-09 08:32] LABS: Basophils # (Auto) 0.1 Thou/mm3 (0.0-0.2); Basophils % (Auto) 1 % (0-2.5); Eosinophils # (Auto) 0.3 Thou/mm3 (0.0-0.5); Eosinophils % (Auto) 4 % (0-10); Hematocrit 40.7 % (36.0-46.0); Hemoglobin 13.5 g/dL (12.0-16.0); Immature Granulocytes % (Auto) 0 % (0-0); Immature Granulocytes Auto 0.02 Thou/mm3 (0.00-0.00); Lymphocytes # (Auto) 1.4 Thou/mm3 (1.0-4.8); Lymphocytes % (Auto) 18 % (10-50); Mean Corpuscular HGB Conc 33.2 g/dl (31.0-37.0); Mean Corpuscular Volume 84 fL (80-100); Monocytes # (Auto) 0.5 Thou/mm3 (0.0-0.8); Monocytes % (Auto) 6 % (0-12); Neutrophils # (Auto) 5.3 Thou/mm3 (1.8-7.7); Neutrophils % (Auto) 71 % (37-80); Nucleated Red Blood Cell % 0 /100 WBC (0); Platelet Count 190 Thou/mm3 (140-440); RDW Standard Deviation 42.3 fL (36.4-46.3); Red Blood Count 4.82 Miln/mm3 (4.00-5.20); White Blood Count 7.6 Thou/mm3 (3.6-11.0)
[2025-01-09 08:42] LABS: Glucose Estimated Average 148 mg/dL (80-131); Hemoglobin A1C 6.8 % Hgb (4.8-6.0)
[2025-01-09 08:54] LABS: Alanine Aminotransferase 11 U/L (10-49); Albumin, Serum 3.9 gm/dL (3.4-4.8); Albumin/Globulin Ratio 1.4 (1.2-2.2); Alkaline Phosphatase 53 U/L (46-116); Anion Gap 6 (7-16); Aspartate Amino Transferase 14 U/L (0-34); BUN/Creatinine Ratio 20 Ratio (12-20); Bilirubin,Total 0.6 mg/dL (0.3-1.2); Blood Urea Nitrogen 28 mg/dL (9-23); Calcium 9.2 mg/dL (8.3-10.6); Calcium (Corrected) 9.3 mg/dL (8.5-10.1); Carbon Dioxide 26.7 mMol/L (20.0-31.0); Chloride 106 mMol/L (98-107); Cholesterol 143 mg/dL (132-200); Creatinine (Component) 1.4 mg/dL (0.6-1.3); Globulin 2.7 gm/dL (2.3-3.5); Glucose 132 mg/dL (74-106); HDL Cholesterol 36 mg/dL (40-60); LDL Cholesterol,Calculated 72 mg/dL (0-130); Osmolality,Calculated 285 (275-295); Potassium 4.6 mMol/L (3.4-5.1); Sodium 139 mMol/L (136-145); Thyroid Stimulating Hormone 1.88 uIU/mL (0.55-4.78); Total Protein 6.6 gm/dL (5.7-8.2); Triglycerides 175 mg/dL (30-150); eGFR 40 See Note
[2025-01-09 08:58] LABS: Collection Type, Urine Clean Catch
[2025-01-09 09:23] LABS: Creatinine MALB Rnd Ur 40 mg/dL (30-125); Microalbumin Creat Ratio 10 mg/gCrea (<30); Microalbumin, Random Urine 4 mg/L (0-300)
[2025-01-09 09:25] LABS: Bilirubin,Urine Negative (Negative); Blood,Urine Negative (Negative); Clarity,Urine Clear (Clear/Hazy); Color,Urine Colorless (Lt Yel-Yel); Culture Indicated,Urine Not Indicated; Glucose, Urine Negative (Negative); Ketones,Urine Negative (Negative); Leukocyte Esterase,Urine Positive (Negative); Nitrite,Urine Negative (Negative); PH,Urine 5.5 (5.0-7.0); Protein,Urine Negative (Neg - Trace); RBC,Urine 2 /hpf (0-3); Squamous Epithelial Cell,Urine < 1 /hpf (0-5); Urobilinogen,Urine Negative mg/dL (0.0-1.0); WBC,Urine 10 /hpf (0-5)
== END | disposition home or self-care (01) ==
PROVIDERS: PCP Internal Medicine; Referring Provider Nurse Practitioner Family; Visit Provider Nurse Practitioner Family
DX: I12.9 Hypertensive chronic kidney disease with stage 1 through stage 4 chronic kidney disease, or unspecified chronic kidney disease (principal); E11.22 Type 2 diabetes mellitus with diabetic chronic kidney disease; N18.30 Chronic kidney disease, stage 3 unspecified; E78.5 Hyperlipidemia, unspecified; E11.65 Type 2 diabetes mellitus with hyperglycemia
CPT/HCPCS: 36415; 80053; 80061; 81001; 82043; 82570; 83036; 84443; 85025

== ENCOUNTER → 2025-07-02 | Outpatient (CLI) | payer OTHER, SELFPAY ==
[2025-07-02 07:47] LABS: Collection Type, Urine Clean Catch
[2025-07-02 10:01] LABS: Bacteria,Urine Rare; Bilirubin,Urine Negative (Negative); Blood,Urine Negative (Negative); Clarity,Urine Clear (Clear/Hazy); Color,Urine Colorless (Lt Yel-Yel); Culture Indicated,Urine Not Indicated; Glucose, Urine Negative (Negative); Ketones,Urine Negative (Negative); Leukocyte Esterase,Urine Positive (Negative); Nitrite,Urine Negative (Negative); PH,Urine 6.0 (5.0-7.0); Protein,Urine Negative (Neg - Trace); RBC,Urine 2 /hpf (0-3); Specific Gravity,Urine 1.008 (1.001-1.035); Squamous Epithelial Cell,Urine 1 /hpf (0-5); Urobilinogen,Urine Negative mg/dL (0.0-1.0); WBC,Urine 2 /hpf (0-5)
== END | disposition home or self-care (01) ==
LOC: SLDO 07:43
PROVIDERS: PCP Internal Medicine; Referring Provider Internal Medicine; Visit Provider Internal Medicine
DX: N17.9 Acute kidney failure, unspecified (principal)
CPT/HCPCS: 81001

== ENCOUNTER → 2025-07-11 | Outpatient (CLI) | payer OTHER, SELFPAY ==
[2025-07-11 09:54] LABS: Basophils # (Auto) 0.1 Thou/mm3 (0.0-0.2); Basophils % (Auto) 1 % (0-2.5); Eosinophils # (Auto) 0.2 Thou/mm3 (0.0-0.5); Eosinophils % (Auto) 3 % (0-10); Hematocrit 41.8 % (36.0-46.0); Hemoglobin 14.1 g/dL (12.0-16.0); Immature Granulocytes Auto 0.01 Thou/mm3 (0.00-0.00); Lymphocytes # (Auto) 1.3 Thou/mm3 (1.0-4.8); Lymphocytes % (Auto) 17 % (10-50); Mean Corpuscular HGB Conc 33.7 g/dl (31.0-37.0); Mean Corpuscular Hemoglobin 29.6 pg (25.0-35.0); Mean Corpuscular Volume 88 fL (80-100); Monocytes # (Auto) 0.4 Thou/mm3 (0.0-0.8); Monocytes % (Auto) 5 % (0-12); Neutrophils # (Auto) 5.5 Thou/mm3 (1.8-7.7); Neutrophils % (Auto) 74 % (37-80); Nucleated Red Blood Cell # 0.00 Thou/mm3 (0.00-0.00); Nucleated Red Blood Cell % 0 /100 WBC (0); Platelet Count 209 Thou/mm3 (140-440); RDW Standard Deviation 45.8 fL (36.4-46.3); Red Blood Count 4.77 Miln/mm3 (4.00-5.20); White Blood Count 7.5 Thou/mm3 (3.6-11.0)
[2025-07-11 10:12] LABS: Glucose Estimated Average 134 mg/dL (80-131); Hemoglobin A1C 6.3 % Hgb (4.8-6.0)
[2025-07-11 10:13] LABS: Parathyroid Hormone Intact 55.3 pg/ml (18.5-88.0)
[2025-07-11 10:19] LABS: Alanine Aminotransferase 12 U/L (10-49); Albumin, Serum 4.3 gm/dL (3.4-4.8); Albumin/Globulin Ratio 1.7 (1.2-2.2); Alkaline Phosphatase 46 U/L (46-116); Anion Gap 10 (7-16); Aspartate Amino Transferase 15 U/L (0-34); BUN/Creatinine Ratio 19 Ratio (12-20); Bilirubin,Total 0.6 mg/dL (0.3-1.2); Blood Urea Nitrogen 27 mg/dL (9-23); Calcium 9.4 mg/dL (8.3-10.6); Calcium (Corrected) 9.4 mg/dL (8.5-10.1); Carbon Dioxide 26.6 mMol/L (20.0-31.0); Cardiac Risk Estimate 5.8 RATIO (3.7-5.6); Chloride 104 mMol/L (98-107); Cholesterol 207 mg/dL (132-200); Creatinine (Component) 1.4 mg/dL (0.6-1.3); Globulin 2.6 gm/dL (2.3-3.5); Glucose 141 mg/dL (74-106); HDL Cholesterol 36 mg/dL (40-60); LDL Cholesterol,Calculated 120 mg/dL (0-130); Osmolality,Calculated 288 (275-295); Potassium 4.7 mMol/L (3.4-5.1); Sodium 141 mMol/L (136-145); Thyroid Stimulating Hormone 1.80 uIU/mL (0.55-4.78); Total Protein 6.9 gm/dL (5.7-8.2); Triglycerides 253 mg/dL (30-150); Vitamin B12 795 pg/mL (211-911); Vitamin D 25 Hydroxy Total 35.8 ng/mL (7.3-40.2); eGFR 39 See Note
== END | disposition home or self-care (01) ==
LOC: COPL 09:12
PROVIDERS: PCP Internal Medicine; Referring Provider Internal Medicine; Visit Provider Internal Medicine
DX: E11.22 Type 2 diabetes mellitus with diabetic chronic kidney disease (principal); I12.9 Hypertensive chronic kidney disease with stage 1 through stage 4 chronic kidney disease, or unspecified chronic kidney disease; N18.30 Chronic kidney disease, stage 3 unspecified; E78.5 Hyperlipidemia, unspecified; D51.9 Vitamin B12 deficiency anemia, unspecified; E55.9 Vitamin D deficiency, unspecified
CPT/HCPCS: 36415; 80053; 80061; 81001; 82043; 82306; 82570; 82607; 83036; 83970; 84443; 85025